=== PATIENT | female | born 1980 | race Hispanic/Latino ===

== ENCOUNTER 2018-09-19 09:40 | Outpatient (CLI) | payer BC ==
--- NOTE | 2018-09-24 13:23 | MMO ---
Bilateral MAMMO Bilat Screen [facility]. CLINICAL HISTORY: Patient is 38 years old and is seen for screening. The patient has no family history of breast cancer. The patient has no personal history of cancer. VIEWS: The views performed were: bilateral craniocaudal with tomosynthesis and bilateral mediolateral oblique with tomosynthesis. MAMMOGRAM FINDINGS: The breasts are heterogeneously dense, which could obscure a lesion on mammography. There are no suspicious masses, calcifications or areas of architectural distortion. IMPRESSION: THERE IS NO MAMMOGRAPHIC EVIDENCE OF MALIGNANCY. A ROUTINE FOLLOW-UP MAMMOGRAM IN 1 YEAR IS RECOMMENDED. THE RESULTS OF THIS EXAM WERE SENT TO THE PATIENT. ACR BI-RADS Category 1 - Negative MAMMOGRAPHY NOTE: 1. A negative mammogram report should not delay a biopsy if a dominant of clinically suspicious mass is present. 2. Approximately 10% to 15% of breast cancers are not detected by mammography. 3. Adenosis and dense breasts may obscure an underlying neoplasm.
== END 2018-09-19 09:41 | disposition home or self-care (01) ==
LOC: BICMAMMO 09:40
PROVIDERS: ATTEND Family Medicine
DX: Z12.31 Encounter for screening mammogram for malignant neoplasm of breast (principal)
CPT/HCPCS: 77063; 77067

== ENCOUNTER 2019-06-04 13:51 | Outpatient (CLI) | payer BC ==
--- NOTE | 2019-06-04 15:04 | MMO ---
Left Breast MAMMO Unilat Diag [facility]. CLINICAL HISTORY: Patient is 39 years old and is seen for diagnostic exam and lump or thickening in the left breast. The patient has no family history of breast cancer. The patient has no personal history of cancer. VIEWS: The views performed were: left craniocaudal with tomosynthesis; left mediolateral oblique with tomosynthesis; and left mediolateral with tomosynthesis. FILMS COMPARED: The present examination has been compared to prior imaging studies performed at [facility] on 09/19/2018 and 06/04/2019. This study has been interpreted with the assistance of computer-aided detection. MAMMOGRAM FINDINGS: The breast is heterogeneously dense, which could obscure a lesion on mammography. There is a new focal asymmetry seen in the inner region of the left breast. This is in the location of palpable concern. The patient gives a history of pain and redness to this area. Sonographic findings are most compatible with mastitis given the provided history. IMPRESSION: NEW FOCAL ASYMMETRY IN THE LEFT BREAST IS PROBABLY BENIGN. FOLLOW-UP ULTRASOUND IN 6 TO 8 WEEKS IS RECOMMENDED. THE RESULTS OF THIS EXAM WERE SENT TO THE PATIENT. ACR BI-RADS Category 3 - Probably benign finding - short interval follow-up suggested. [facility] will notify the patient of the need for additional imaging services. MAMMOGRAPHY NOTE: 1. A negative mammogram report should not delay a biopsy if a dominant of clinically suspicious mass is present. 2. Approximately 10% to 15% of breast cancers are not detected by mammography. 3. Adenosis and dense breasts may obscure an underlying neoplasm. Reported by: PETER MORELOS MD Electonically Signed: [id number]
--- NOTE | 2019-06-04 15:12 | ULT ---
LIMITED LEFT BREAST ULTRASOUND: 06/04/2019 PROVIDED CLINICAL HISTORY: Left breast palpable abnormality with history of pain and redness. FINDINGS: There is [id number] altered echogenicity present within the breast parenchyma at the 6, 7 and 8 o' clock positions of the left breast, in the region of palpable concern. There is increased vascularity of the surrounding tissues. There is no evidence for a true fluid collection. IMPRESSION: Altered echogenicity in the region of palpable concern likely reflects mastitis with phlegmon given t he provided clinical history. Other etiologies are possible. Follow-up ultrasound in six to eight wee ks is recommended. BI-RADS category 3 - probably benign findings. POS: OFF
== END 2019-06-04 13:52 | disposition home or self-care (01) ==
LOC: BICMAMMO 13:51
PROVIDERS: ATTEND Family Medicine
DX: N63.20 Unspecified lump in the left breast, unspecified quadrant (principal); N64.89 Other specified disorders of breast
CPT/HCPCS: G0279

== ENCOUNTER 2025-03-26 15:40 | Outpatient (CLI) | payer OTHER | END 2025-03-26 15:41 | disposition home or self-care (01) | LOC: BICMAMMO 15:40 | PROVIDERS: ATTEND Family Medicine | DX: Z12.31 Encounter for screening mammogram for malignant neoplasm of breast (principal); Z91.89 Other specified personal risk factors, not elsewhere classified | CPT/HCPCS: 77063; 77067 ==